=== PATIENT | female | born 1955 | race Caucasian/White ===

== ENCOUNTER 2020-12-24 14:49 | Emergency (ER) | payer MEDICARE, OTHER ==
[~2020-12-24 14:49] MED LIST: BENADRYL25 MG PO; HYDRALAZINE 10M10 MG PO; PERCOCET 5-3251 EACH PO; ZESTRIL5 MG PO
[2020-12-24 16:36] LABS: BASOPHIL 0.9 % (0-2); EOSINOPHIL 1.8 % (0-7); HCT 36.9 % (37.0-47.0); HGB 12.2 g/dl (12.5-16.0); LYMPHOCYTE 24.7 % (15-48); MCH 30.8 pg (25.0-31.0); MCHC 33.1 g/dL (32.0-36.0); MCV 93.2 fL (78.0-100.0); MONOCYTE 6.1 % (0-12); MPV 9.4 fL (6.0-9.5); NEUTROPHIL 65.9 % (41-80); NRBC 0; PLT 270 K/uL (150-400); RBC 3.96 M/uL (4.20-5.40); RDW 14.1 % (11.5-14.0); WBC 7.9 K/uL (4.0-10.5)
[2020-12-24 16:42] LABS: INR 0.91 (0.9-1.2); PROTHROMBIN TIME 11.7 SECONDS (11.8-13.4)
[2020-12-24 16:49] LABS: ALBUMIN 3.4 g/dL (3.4-5.0); BILIRUBIN - TOTAL 0.4 mg/dL (0.2-1.0); BUN/CREAT RATIO (CALC) 12.1 RATIO; CREATININE 0.91 mg/dL (0.51-0.95); GLOBULIN (CALCULATION) 3.5 g/dL; MAGNESIUM 2.3 mg/dL (1.8-2.4); POTASSIUM 3.9 mmol/L (3.5-5.1); TOTAL PROTEIN 6.9 g/dL (6.4-8.2)
[2020-12-24 16:56] LABS: BILIRUBIN NEGATIVE (NEGATIVE); BLOOD NEGATIVE Ery/uL (NEGATIVE); CLARITY CLEAR (CLEAR); COLOR YELLOW (YELLOW); GLUCOSE (U) NORMAL (NORMAL); LEUKOCYTES NEGATIVE Leu/uL (NEGATIVE); NITRITE NEGATIVE (NEGATIVE); PROTEIN NEGATIVE (NEGATIVE); UROBILINOGEN 0.2 mg/dL (0.2-1.0)
== END 2020-12-24 18:20 | disposition home or self-care (01) ==
LOC: FER 14:49
PROVIDERS: Emergency Medicine
DX: R42 Dizziness and giddiness (principal); H53.8 Other visual disturbances
CPT/HCPCS: 36415; 70450; 71045; 80053; 81003; 83735; 84145; 84484; 85025; 85610; 85730; 93005

== ENCOUNTER → 2021-04-01 | Day surgery (SDC) | payer MEDICARE ==
[~2021-04-01] VITALS: Ht 154.9 cm; Wt 83.7 kg
[2021-04-01 09:20] LABS: BUN/CREAT RATIO (CALC) 11.5 RATIO; CREATININE 0.87 mg/dL (0.51-0.95)
== END | disposition home or self-care (01) ==
LOC: FAS 08:05
PROVIDERS: Anesthesiology
DX: C50.911 Malignant neoplasm of unspecified site of right female breast (principal); F17.200 Nicotine dependence, unspecified, uncomplicated; I10 Essential (primary) hypertension; Z90.13 Acquired absence of bilateral breasts and nipples; Z90.710 Acquired absence of both cervix and uterus; Z80.3 Family history of malignant neoplasm of breast; Z72.89 Other problems related to lifestyle
CPT/HCPCS: 36415; 71045; 76000; 80048; C1788; J0690; J1100; J1644; J1885; J2250; J2405; J2704; J3010; J7120